=== PATIENT | female | born 2000 | race American Indian/Alaskan Native ===

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

== ENCOUNTER 2018-11-19 14:57 | Emergency (ER) | payer MEDICAID, SELFPAY ==
[2018-11-19 15:09] VITALS: BP 118/71
--- NOTE | 2018-11-19 16:11 | Event Note ---
ED Screening Note ED Screening Note: This initial assessment/diagnostic orders/clinical plan/treatment(s) is/are subject to change based on patients health status, clinical progression and re- assessment by fellow clinical providers in the ED. Further treatment and workup at subsequent clinical providers discretion. Patient/guardian urged not to elope from the ED as their condition may be serious if not clinically assessed and managed. Initial orders include: Pt states that she has been having severe throat pain x 3 days. She states sw allowing is painful and difficult.
[2018-11-19] MEDS ORDERED: dexAMETHasone 20 MG/5 ML VIAL IM ONE (16:49)
[2018-11-19] MEDS ORDERED: PENICILLIN G BENZATHINE 1.2 MILLION UNIT/2 ML INJ IM ONE (16:49)
[2018-11-19] MEDS ORDERED: HYDROcodone/APAP 7.5-325MG-15ML ORAL LIQD PO ONE (16:49)
--- NOTE | 2018-11-19 16:56 | Emergency Department Report ---
ED ENT HPI - General Chief complaint: Sore Throat Stated complaint: SORE THROAT Time Seen by Provider: 11/19/18 16:23 Source: patient Mode of arrival: Ambulatory Limitations: No Limitations - History of Present Illness Initial comments: Patient is a 18-year-old female who is complaining of 3 days of sore throat. Patient has pain with swallowing and it is 6 out of 10 in severity. She denies cough nausea vomiting or neck stiffness. Severity scale (0 -10): 6 Quality: burning, aching Consistency: constant Improves with: none Worsens with: swallowing - Related Data Previous Rx's Medication Instructions Recorded Last Taken Type HYDROcodone/ACETAMINOPHEN 15 ml PO Q6H PRN #150 solution 11/19/18 Unknown Rx [Hydrocodon-Acetamin 7.5-325/15] Allergies Allergy/AdvReac Type Severity Reaction Status Date / Time No Known Allergies Allergy Verified 04/09/16 11:52 ED Dental HPI - General Chief complaint: Sore Throat Stated complaint: SORE THROAT Time Seen by Provider: 11/19/18 16:23 Source: patient Mode of arrival: Ambulatory Limitations: No Limitations - Related Data Previous Rx's Medication Instructions Recorded Last Taken Type HYDROcodone/ACETAMINOPHEN 15 ml PO Q6H PRN #150 solution 11/19/18 Unknown Rx [Hydrocodon-Acetamin 7.5-325/15] Allergies Allergy/AdvReac Type Severity Reaction Status Date / Time No Known Allergies Allergy Verified 04/09/16 11:52 ED Review of Systems ROS: Stated complaint: SORE THROAT Other details as noted in HPI Comment: All other systems reviewed and negative ED Past Medical Hx - Past Medical History Previous Medical History?: No Hx Hypertension: No - Surgical History Additional Surgical History: face surg - Social History Smoking Status: Never Smoker Substance Use Type: None - Medications Home Medications: Home Medications Medication Instructions Recorded Confirmed Last Taken Type HYDROcodone/ACETAMINOPHEN 15 ml PO Q6H PRN #150 solution 11/19/18 Unknown Rx [Hydrocodon-Acetamin 7.5-325/15] ED Physical Exam - General Limitations: No Limitations General appearance: alert, in no apparent distress - Head Head exam: Present: atraumatic, normocephalic - Eye Eye exam: Present: normal appearance - ENT ENT exam: Present: mucous membranes moist - Expanded ENT Exam Expanded Throat exam: Positive: tonsillar erythema, tonsillomegaly, tonsillar exudate, other (uvula is midline) - Neck Neck exam: Present: normal inspection, lymphadenopathy - Respiratory Respiratory exam: Present: normal lung sounds bilaterally. Absent: respiratory distress, wheezes, rales, rhonchi - Cardiovascular Cardiovascular Exam: Present: regular rate, normal rhythm, normal heart sounds. Absent: systolic murmur, diastolic murmur, rubs, gallop - GI/Abdominal GI/Abdominal exam: Present: soft, normal bowel sounds. Absent: distended, tenderness, guarding, rebound - Extremities Exam Extremities exam: Present: normal inspection - Back Exam Back exam: Present: normal inspection - Neurological Exam Neurological exam: Present: alert, oriented X3 - Psychiatric Psychiatric exam: Present: normal affect, normal mood - Skin Skin exam: Present: warm, dry, intact, normal color. Absent: rash ED Course Vital Signs 11/19/18 15:05 Temperature 98.9 F Pulse Rate 112 H Respiratory 16 Rate Blood Pressure 118/71 [Right] O2 Sat by Pulse 100 Oximetry ED Medical Decision Making - Medical Decision Making Patient meets [facility] criteria for him. Treatment for pharyngitis. Patient be discharged home. Critical care attestation.: If time is entered above; I have spent that time in minutes in the direct care of this critically ill patient, excluding procedure time. ED Disposition Clinical Impression: Exudative pharyngitis Disposition: DC-01 TO HOME OR SELFCARE Is pt being admited?: No Does the pt Need Aspirin: No Condition: Stable Instructions: Pharyngitis (ED) Referrals: NABILA SERVIN MD [Referring] - 3-5 Days Time of Disposition: 16:56
== END 2018-11-19 17:40 | disposition home or self-care (01) ==
LOC: ED 14:57
DX: J02.9 Acute pharyngitis, unspecified (principal)
CPT/HCPCS: 87116; 87430; 96372; 99283; J0561; J1100

== ENCOUNTER 2018-11-22 15:13 | Emergency (ER) | payer SELFPAY ==
--- NOTE | 2018-11-22 15:29 | Emergency Department Report ---
Blank Doc - Documentation Documentation: 18-year-old female that presents with worsening sore throat. Was treated 3 days ago with Bicillin in the ED. Now has difficulty swallowing and changing in voices. This initial assessment/diagnostic orders/clinical plan/treatment(s) is/are subject to change based on patient's health status, clinical progression and re- assessment by fellow clinical providers in the ED. Further treatment and workup at subsequent clinical providers discretion. Patient/guardians urged not to elope from the ED as their condition may be serious if not clinically assessed and managed. Initial orders include: 1- Patient sent to [facility] for further evaluation and treatment 2- labs for possible CT
[2018-11-22 15:32] VITALS: BP 129/82
[2018-11-22 16:30] LABS: BUN/Creatinine Ratio 20; Blood Urea Nitrogen 12 mg/dL (7-17); Calcium 8.6 mg/dL (8.4-10.2); Hemolysis Index 1
[2018-11-22 16:40] LABS: Mean Corpuscular HGB Conc 29 % (30-34); Mean Corpuscular Volume 71 fl (79-97); Platelet Count 306 K/mm3 (140-440); Red Blood Count 3.93 M/mm3 (3.65-5.03)
[2018-11-22] MEDS ORDERED: dexAMETHasone 20 MG/5 ML VIAL IV ONE (16:42)
[2018-11-22] MEDS ORDERED: KETOROLAC 30 MG/1 ML INJ IM ONE (16:42)
[2018-11-22] MEDS ORDERED: ACETAMINOPEN W/CODEINE 120-12MG ORAL LIQD 5 ML PO ONE (16:42)
[2018-11-22 16:44] LABS: Hematocrit 27.9 % (30.3-42.9); Hemoglobin 8.1 gm/dl (10.1-14.3); Red Cell Distribution Width 20.2 % (13.2-15.2)
[2018-11-22] MEDS ORDERED: SODIUM CHLORIDE 0.9% 1000 ML 1,000 ML IV ONE ×2 (16:45→18:13)
--- NOTE | 2018-11-22 16:49 | Emergency Department Report ---
<TORO LARES - Last Filed: 11/22/18 21:23> ED ENT HPI - General Chief complaint: Sore Throat Stated complaint: SORE THROAT Time Seen by Provider: 11/22/18 15:27 - Related Data Previous Rx's Medication Instructions Recorded Last Taken Type HYDROcodone/ACETAMINOPHEN 15 ml PO Q6H PRN #150 solution 11/19/18 Unknown Rx [Hydrocodon-Acetamin 7.5-325/15] Acetamin/Codeine 120-12Mg/5 ml 5 ml PO Q6H PRN 7 Days #100 oz 11/22/18 Unknown Rx [Tylenol/Codeine] Prednisone [predniSONE 10 mg 10 mg PO .TAPER #1 tab.ds.pk 11/22/18 Unknown Rx (6-Day Pack, 21 Tabs)] Allergies Allergy/AdvReac Type Severity Reaction Status Date / Time No Known Allergies Allergy Verified 04/09/16 11:52 ED Dental HPI - General Chief complaint: Sore Throat Stated complaint: SORE THROAT Time Seen by Provider: 11/22/18 15:27 - Related Data Previous Rx's Medication Instructions Recorded Last Taken Type HYDROcodone/ACETAMINOPHEN 15 ml PO Q6H PRN #150 solution 11/19/18 Unknown Rx [Hydrocodon-Acetamin 7.5-325/15] Acetamin/Codeine 120-12Mg/5 ml 5 ml PO Q6H PRN 7 Days #100 oz 11/22/18 Unknown Rx [Tylenol/Codeine] Prednisone [predniSONE 10 mg 10 mg PO .TAPER #1 tab.ds.pk 11/22/18 Unknown Rx (6-Day Pack, 21 Tabs)] Allergies Allergy/AdvReac Type Severity Reaction Status Date / Time No Known Allergies Allergy Verified 04/09/16 11:52 ED Past Medical Hx - Medications Home Medications: Home Medications Medication Instructions Recorded Confirmed Last Taken Type HYDROcodone/ACETAMINOPHEN 15 ml PO Q6H PRN #150 solution 11/19/18 Unknown Rx [Hydrocodon-Acetamin 7.5-325/15] Acetamin/Codeine 120-12Mg/5 ml 5 ml PO Q6H PRN 7 Days #100 oz 11/22/18 Unknown Rx [Tylenol/Codeine] Prednisone [predniSONE 10 mg 10 mg PO .TAPER #1 tab.ds.pk 11/22/18 Unknown Rx (6-Day Pack, 21 Tabs)] ED Medical Decision Making - Lab Data Result diagrams: 11/22/18 15:57 11/22/18 15:57 - Radiology Data Radiology results: report reviewed Ordering Physician: ALFREDA REILLY Date of Service: 11/22/18 Procedure(s): CT neck w con Accession Number(s): [id number] cc: ALFREDA REILLY NECK CT 11/22/2018 HISTORY: Sore throat FINDINGS: Contrast enhanced CT images of the soft tissues of the neck were obtained. Images are evaluated in the axial, coronal, and sagittal plane. The patient has prominent bilateral tonsillar lymphoid hyperplasia. Prominent bilateral reactive cervical adenopathy is present. There is no evidence of abnormal mass, fluid collection, or soft tissue inflammatory change. There is a normal CT appearance to the parotid and submandibular glands. Thyroid gland is normal. Vascular structures are normal. IMPRESSION: Findings consistent with tonsillitis and reactive adenopathy. No evidence of abscess. All CT scans at this location are performed using dose reduction to ALARA by means of automated exposure control. Signer Name: Dago Singer MD Signed: 11/22/2018 7:53 PM Workstation Name: [id number] Transcribed By: AO Dictated By: Dago Singer MD Electronically Authenticated By: Dago Singer MD Signed Date/Time: 11/22/181952 - Medical Decision Making CT scan results entered and interpreted. Lab results yielded a positive Monospot test. Pt stated that she feels better after Dexmethasone and Toradol injection along with Tylenol No. 3 liquid in ER. She was explained that she will be sent home with a Prednisone pack and told to continue current medication for pain. The pt was further explained that she is not to engage in physical activity, especially involving risk to trauma to the abdomen due to risk of spleen injury. Pt was also told to drink,drive or lift heavy objects while on current pain medication. Pt will follow up with PCP in 3-5 days and see ED if symptoms worsen. Pt verbalized understanding and agreed with the plan of care. ED Disposition Clinical Impression: Barren exposure, Gary Sanchez infection Disposition: DC-01 TO HOME OR SELFCARE Is pt being admited?: No Does the pt Need Aspirin: No Condition: Stable Additional Instructions: CT scan results entered and interpreted. Lab results yielded a positive Monospot test. Pt stated that she feels better after Dexmethasone and Toradol injection along with Tylenol No. 3 liquid in ER. She was explained that she will be sent home with a Prednisone pack and Tylenol No. 3. The pt was further explained that she is not to engage in physical activity, especially involving risk to trauma to the abdomen due to risk of spleen injury. Pt was also told to drink,drive or lift heavy objects while on Tylenol No. 3. Pt will follow up with PCP in 3-5 days and see ED if symptoms worsen. Pt verbalized understanding and agreed with the plan of care. Prescriptions: Prednisone [predniSONE 10 mg (6-Day Pack, 21 Tabs)] 10 mg PO .TAPER #1 tab.ds.pk Acetamin/Codeine 120-12Mg/5 ml [Tylenol/Codeine] 5 ml PO Q6H PRN 7 Days #100 oz PRN Reason: Pain Referrals: PRIMARY CARE, [Primary Care Provider] - 3-5 Days Forms: Work/School Release Form(ED) Time of Disposition: 21:31 <ANN-MARIE SANTIAGO - Last Filed: 12/01/18 04:55> ED ENT HPI - General Source: patient Mode of arrival: Ambulatory Limitations: No Limitations - History of Present Illness Initial comments: 18-year-old female presents to the emergency room complaining of a sore throat 1 week. Patient reports that she was here 3 days ago and received a antibiotic shot and steroid shot. Patient reports that her sore throat is not getting any better and is actually getting worse for swallowing and now she is having voice changing. Patient reports that she was feverish yesterday. Patient reports she is not able to swallow. Menstrual period starte d today 11/22/2018. complaint: sore throat, difficulty swallowing Onset/Timin -: week(s) Location: throat Severity: severe Severity scale (0 -10): 10 Quality: burning, stabbing, sharp Consistency: constant Improves with: none Worsens with: swallowing Associated Symptoms: fever, pain with swallowing, sore throat ED Dental HPI - General Source: patient Mode of arrival: Ambulatory Limitations: No Limitations ED Review of Systems ROS: Stated complaint: SORE THROAT Other details as noted in HPI Comment: All other systems reviewed and negative ED Past Medical Hx - Past Medical History Hx Hypertension: No - Surgical History Additional Surgical History: face surg - Social History Smoking Status: Never Smoker Substance Use Type: None ED Physical Exam - General Limitations: No Limitations General appearance: alert, in no apparent distress - Head Head exam: Present: atraumatic, normocephalic - Eye Eye exam: Present: EOMI - Expanded ENT Exam Expanded Mouth exam: Present: muffled voice, other (spitting) Throat exam: Positive: tonsillar erythema, tonsillomegaly, tonsillar exudate, other - Neck Neck exam: Present: tenderness, lymphadenopathy - Cardiovascular Cardiovascular Exam: Present: regular rate, normal rhythm. Absent: systolic m urmur, diastolic murmur, rubs, gallop - Neurological Exam Neurological exam: Present: alert, oriented X3 - Psychiatric Psychiatric exam: Present: normal affect, normal mood - Skin Skin exam: Present: warm, dry, intact, normal color. Absent: rash ED Course Vital Signs 11/22/18 11/22/18 11/22/18 15:28 17:08 17:09 Temperature 98.7 F Pulse Rate 111 H Respiratory 18 22 22 Rate Blood Pressure 129/82 O2 Sat by Pulse 100 Oximetry ED Medical Decision Making - Lab Data Result diagrams: 11/22/18 15:57 11/22/18 15:57 - Medical Decision Making 18-year-old female presents to the emergency room complaining of a sore throat 1 week. Patient reports that she was here 3 days ago and received a antibiotic shot and steroid shot. Patient reports that her sore throat is not getting any better and is actually getting worse for swallowing and now she is having voice changing. Patient reports that she was feverish yesterday. Patient reports she is not able to swallow. Menstrual period started today 11/22/2018. BC, CMP hCG has been ordered. CT of the neck with contrast has been ordered. Dexamethasone 10 mg Toradol 30 mg Tylenol No. 3 liquid has been ordered for pain management. Critical care attestation.: If time is entered above; I have spent that time in minutes in the direct care of this critically ill patient, excluding procedure time.
[2018-11-22 17:40] LABS: Band Neutrophils # (Manual) 0.3 K/mm3; Basophils % (Manual) 0 % (0.0-1.8); Eosinophils % (Manual) 0 % (0.0-4.3); Total Cells Counted 100
[2018-11-22 17:41] LABS: Anisocytosis 1+; Hypochromasia 2+; Ovalocytes 1+; Platelet Estimate Consistent w Auto; Poikilocytosis 1+
[2018-11-22] MEDS ORDERED: CLINDAMYCIN 600 MG/50 mL 600 MG/50 ML BAG IV ONE (18:19)
--- NOTE | 2018-11-22 19:57 | Cat Scan Report ---
NECK CT 11/22/2018 HISTORY: Sore throat FINDINGS: Contrast enhanced CT images of the soft tissues of the neck were obtained. Images are evalu ated in the axial, coronal, and sagittal plane. The patient has prominent bilateral tonsillar lymphoid hyperplasia. Prominent bilateral reactive cervical adenopathy is present. There is no evidence of abnormal mass, fluid collection, or soft tissue inflammatory change. There is a normal CT appearance to the parotid and submandibular glands. Thyroid gland is normal. Vascular structures are normal. IMPRESSION: Findings consistent with tonsillitis and reactive adenopathy. No evidence of abscess. All CT scans at this location are performed using dose reduction to ALARA by means of automated expos ure control. Signer Name: Dago Singer MD Signed: 11/22/2018 7:53 PM Workstation Name: [id number]
== END 2018-11-22 21:45 | disposition home or self-care (01) ==
LOC: ED 15:13
DX: B27.90 Infectious mononucleosis, unspecified without complication (principal); Z79.899 Other long term (current) drug therapy
CPT/HCPCS: 36415; 70491; 80048; 84703; 85007; 85025; 86308; 87591; 96365; 96372; 96375; 99284; J1100; J1885; J7030; Q9967